=== PATIENT | male | born 1970 | race Caucasian/White ===

== ENCOUNTER 2019-01-14 11:37 | Outpatient (CLI) | payer MEDICARE, MEDICAID ==
--- NOTE | 2019-01-14 14:02 | REP ---
MR CERVICAL SPINE WITHOUT CONTRAST: HISTORY: Quadriplegia. The patient is status post C3-4 anterior spinal fusion. Metal hardware is present. A disc bulge is present at the C4-5 level. There is mild effacement of the thecal sac without spinal cord compression. The C4 neural foramina are patent. A disc bulge is present at the C5-6 level. There is minimal effacement of the thecal sac without spinal cord compression. The C5 neural foramina are patent. There is no other disc bulge or herniation. The remaining neural foramina are patent. Small focal areas of increased signal intensity on T2-weighted images are present in the spinal cord at the C3-4 level. The spinal cord is small in size. This represents myelomalacia. The central canal of the spinal cord is seen at the C6-7 level. Normal signal intensity is present in the cervical vertebral bodies. There is no subluxation. IMPRESSION: 1. The patient is status post C3-4 anterior spinal fusion. There is anatomic alignment. 2. There is cervical spondylosis at the C4-5 and C5-6 levels without spinal cord compression. 3. There is focal myelomalacia of the spinal cord at the C3-4 level. Electronically Signed by Mathieu Salinas MD 01/14/2019 02:03 P
[2019-01-14 14:49] VITALS: BP 107/58
== END 2019-01-14 15:00 | disposition home or self-care (01) ==
LOC: M SDC 11:37
PROVIDERS: ATTEND Physical Medicine & Rehabilitation
DX: M47.812 Spondylosis without myelopathy or radiculopathy, cervical region (principal); M51.36 Other intervertebral disc degeneration, lumbar region; G95.89 Other specified diseases of spinal cord; R26.81 Unsteadiness on feet; G82.50 Quadriplegia, unspecified; Z98.1 Arthrodesis status